=== PATIENT | female | born 1990 | race Caucasian/White ===

== ENCOUNTER 2020-02-04 00:10 | Inpatient (IN) | payer MEDICAID, OTHER, SELFPAY ==
[2020-02-04] MEDS ORDERED: Succinylcholine Chloride 20 MG/ML 10 ml SYRINGE FS ONE (00:19)
[2020-02-04] MEDS ORDERED: Naloxone HCl 2 mg/2 ml Syringe ONE (00:23)
[2020-02-04 00:43] LABS: #Basophils 0.1 thou/uL (0.0-0.2); #Eosinphils 0.1 thou/uL (0.0-0.7); #Lymphocytes 2.9 thou/uL (1.20-3.40); #Monocytes 0.4 thou/uL (0.11-0.59); #Neutrophils 4.8 thou/uL (1.40-6.50); %Basophils 1.2 % (0.0-1.0); %Eosinophils 0.6 % (0.0-10.0); %Lymphocytes 35.3 % (21.0-51.0); %Monocytes 5.3 % (0.0-10.0); %Neutrophils 57.6 % (42.0-75.0); Mean Corpuscular HGB CONC 33.6 g/dL (32.0-36.0); Mean Corpuscular Volume 98.1 fL (78.0-98.0); Platelet Count 323 thou/uL (130-400); RBC Distribution Width 11.4 % (11.5-14.5); Red Blood Cell (RBC) Count 4.86 mill/uL (4.20-5.40); White Blood Cell (WBC) Count 8.3 thou/uL (4.8-10.8)
[2020-02-04] MEDS ORDERED: Fentanyl 100 MCG/2 ML VIAL ONE (00:43)
[2020-02-04] MEDS ORDERED: Midazolam HCl 2 mg/2 ml Vial ONE (00:44)
[2020-02-04] MEDS ORDERED: fentaNYL Citrate/PF 2,000 MCG in Sodium Chloride 0.9% 60 ML IV SCH (00:47)
[2020-02-04 00:54] LABS: BHCG - Serum Negative (NEGATIVE); Pregs Control Background? CLEAR/WHITE (CLR/WHITE); Pregs Control Bar Appear? YES (CONTROL BAR)
[2020-02-04 00:56] LABS: Bilirubin Negative (Negative); Blood, Urine Negative (Negative); Clarity Clear (Clear); Glucose, Urine (Dipstick) Normal (Negative); Leukocyte Negative Leu/uL (Negative); Nitrite Negative (Negative); Protein, Urine (Dipstick) Negative (Neg-Trace); Urobilinogen Normal mg/dL (Less than 2)
[2020-02-04 01:01] LABS: Actual Bicarbonate (HCO3a) 18.7 mEq/L (22-28); Analyzer IN Cardio ER; Base Excess (BEa) -2.8 mEq/L (-2.0 to +3.0); Calcium, Ionized 1.14 mmol/L (1.12-1.30); Carboxyhemoglobin (COHb) 1.3 gm% (0.0-3.0); O2 Tension (PaO2) 297.7 mmHg (80.0-100.0); Potassium - ABG Lab 4.04 mmol/L (3.70-5.30); pH, Arterial 7.48 (7.35-7.45)
[2020-02-04] MEDS ORDERED: Propofol 1,000 MG/100 ML VIAL IV ONE (01:01)
[2020-02-04 01:02] LABS: CO2 Tension 25.6 mmHg (35.0-45.0); Puncture Site R RADIAL
[2020-02-04 01:04] LABS: Acetaminophen Less than 6.0 mcg/mL (10.0-30.0); Alcohol 311 mg/dL (Less than 10); Salicylate Less than 8.0 mg/dL (15.0-30.0)
[2020-02-04 01:05] LABS: ALT (SGPT) 12 U/L (8-55); AST (SGOT) 23 U/L (5-34); Albumin 4.3 g/dL (3.5-5.0); Alkaline Phosphatase 59 U/L (40-110); Anion Gap 15 mmol/L (10-20); BUN (Urea Nitrogen) 9 mg/dL (7.0-18.7); Bilirubin, Total 0.3 mg/dL (0.2-1.2); Calc. Creatinine Clearance 0 mL/min (70-130); Calcium 9.1 mg/dL (7.8-10.44); Carbon Dioxide 20 mmol/L (22-29); Chloride 110 mmol/L (98-107); Estimated GFR-MDRD Greater than 90; Globulin 2.5 g/dL (2.4-3.5); Glucose 101 mg/dL (70-105); Potassium 3.7 mmol/L (3.5-5.1); Protein, Total 6.8 g/dL (6.0-8.3); Sodium 141 mmol/L (136-145)
[2020-02-04 01:05] LABS: Medtox Reader # READER 4
[2020-02-04 01:06] LABS: Amphetamine Not Detected (NotDetected); Barbiturates Screen Not Detected (NotDetected); Benzodiazepine Screen Not Detected (NotDetected); Cocaine Metabolite Screen Not Detected (NotDetected); Medtox Control Line Valid? VALID (VALID); Methadone Not Detected (NotDetected); Methamphetamine Not Detected (NotDetected); Opiate Screen Not Detected (NotDetected); Oxycodone Screen Not Detected (NotDetected); Phencyclidine (PCP) Not Detected (NotDetected); THC/Cannabinoid Screen Detected (NotDetected); Tricyclic Screen Not Detected (NotDetected)
--- NOTE | 2020-02-04 01:25 | PDOC.FPRHP ---
- History of Present Illness Chief Complaint: aggitation, hypoxia History of Present Illness: 29yo F presents via EMS for confusion, aggitation, and altered mentation. At time of presentation patient intubated, history obtained from ERMD and nursing report. Patient was at a hotel with a male counterpart engaging in sexual intercourse when she began to gasp for air and becoming less responsive. He then called 911 and began chest compression, unclear time spent undergoing chest compressions. EMS arrived, patient had pulse and was breathing on own. Was combative and not cooperative. Given 2mg Ativan IM and brought into ED. Per report, unsure of PMHx, friend did not admit to any substance use. ED Course: Initially combative. Within 10 mins of presentation had hypoxia to 70s and not protecting airway. Was given Narcan with no improvement. Sequential RSI was performed and patient placed on fentanyl and propofol gtt. Valverde and NG placed. Given 1L NS. - Allergies/Adverse Reactions Allergies Allergy/AdvReac Type Severity Reaction Status Date / Time No Known Allergies Allergy Verified 02/04/20 01:42 - History PMHx: Unknown - record review, with history of gestational DM PSHx: Unknown FHx:Unknown Social: Unknown - Review of Systems ROS unobtainable: due to endotracheal tube - Vital signs BP: 101/64 HR: 96 RR: 12 Tmax: 97. Pox: 79 on RA -> improved to 100 on vent Wt : 70kg - Physical Exam Constitutional: well developed, other (Intubated and sedated) HEENT: normocephalic and atraumatic, conjunctiva clear, normal nasal mucosa, MMM , other (PERRL, ETT in place) Neck: supple, trachea midline Heart: RRR, normal S1/S2, no murmurs/rubs/gallops, pulses present, no edema Lungs: CTAB, no respiratory distress, good air movement, no rales/rhonchi, no wheezing Abdomen: soft, non-tender, bowel sounds present Musculoskeletal: normal structure, normal tone Neurological: other (Does not withdrawl to pain 2/2 sedation. PERRL.) Skin: no rash/lesions, good turgor, other (track horne on R arm) Heme/Lymphatic: no unusual bruising or bleeding FMR H&P: Results - Labs Result Diagrams: 02/05/20 05:29 02/05/20 05:29 Lab results: WBC 8.3 thou/uL (4.8-10.8) 02/04/20 00:32 Hgb 16.0 g/dL (12.0-16.0) 02/04/20 00:32 Hct 47.7 % (36.0-47.0) H 02/04/20 00:32 MCV 98.1 fL (78.0-98.0) H 02/04/20 00:32 Plt Count 323 thou/uL (130-400) 02/04/20 00:32 Neutrophils % 57.6 % (42.0-75.0) 02/04/20 00:32 ABG pH 7.48 (7.35-7.45) H 02/04/20 00:50 ABG pCO2 25.6 mmHg (35.0-45.0) L* 02/04/20 00:50 ABG pO2 297.7 mmHg (80.0-100.0) H 02/04/20 00:50 Sodium 141 mmol/L (136-145) 02/04/20 00:32 Potassium 3.7 mmol/L (3.5-5.1) 02/04/20 00:32 Chloride 110 mmol/L (98-107) H 02/04/20 00:32 Carbon Dioxide 20 mmol/L (22-29) L 02/04/20 00:32 BUN 9 mg/dL (7.0-18.7) 02/04/20 00:32 Creatinine 0.72 mg/dL (0.6-1.1) 02/04/20 00:32 Glucose 101 mg/dL (70-105) 02/04/20 00:32 Calcium 9.1 mg/dL (7.8-10.44) 02/04/20 00:32 Total Bilirubin 0.3 mg/dL (0.2-1.2) 02/04/20 00:32 AST 23 U/L (5-34) 02/04/20 00:32 ALT 12 U/L (8-55) 02/04/20 00:32 Alkaline Phosphatase 59 U/L (40-110) 02/04/20 00:32 Serum Total Protein 6.8 g/dL (6.0-8.3) 02/04/20 00:32 Albumin 4.3 g/dL (3.5-5.0) 02/04/20 00:32 Urine Ketones Negative mg/dL (Negative) 02/04/20 00:42 Urine Blood Negative (Negative) 02/04/20 00:42 Urine Nitrite Negative (Negative) 02/04/20 00:42 Ur Leukocyte Esterase Negative Marci/uL (Negative) 02/04/20 00:42 - EKG Interpretation EKG: NSR, good R wave progression, no acute ST or T wave changes. Prolonged QT of 460. - Radiology Interpretation Chest x-ray Status: image reviewed by me (ETT/NG tube in place. sharp angles, no focal consolidation), report reviewed by me FMR H&P: A/P - Problem List (1) Alcohol intoxication Status: Acute - Plan 29yo F presents for acute alcohol intoxication requiring intubation for airway protection #Neuro - Alcohol intoxication, THC abuse - EtOH lv 311, UDS + THC otherwise neg, Salicylates and APAP negative - Agitation, altered mentation at presentation, not protecting airway - currently sedated on fentanyl and propofol gtt - Cont sedation protocol and plan to wean in AM - CT Head w/o contrast ordered - Consider other drug intoxication if further history obtained #Resp - Acute hypoxic respiratory failure 2/2 alcohol intoxication - Intubated for airway protection and hypoxemia - Initial Vent settings: CMV - TV 475, RR 12, Peep 5, 50% FiO2 - Post-intubation ABG 7.48/25.6/297/18.7 - Current VSS - EtOH lv 311 - Pulm, Dr. Law, consulted in AM, appreciate recs - cont to vent and wean as tolerated, AM ABG ordered #Cardio - Mild prolonged QTc - QTc 460, avoid QT prolonging medications, monitoring on tele - EKG no acute changes #Renal - BUN/Cr 9/0.77, lytes WNL - strict I's and O's - MIVF of LR @ 110 cc/hr #GI/ - GI PPx Pepcid - NG tube placed - Valverde placed - BHCG neg #Heme - CBC WNL - VTE ppx: Held until CT head results, then start Lovenox #ID - no current s/s of infection, CXR no acute consolidation, UA clean - track horne on exam, suspected h/o IV drug abuse - history of high risk sexual behavior - RPR, HIV, Hep C ordered #Nutrition - NPO 2/2 intubation #Skin - no skin lesions on exam, routine ICU positional changes and skin care #Lines - RUE peripheral IV PCP: CC - unknown Code: Full Disposition/LOS: Admit to CCU for acute hypoxic respiratory failure 2/2 alcohol intoxication and airway protection. Anticipated LOS 2-3 days. FMR H&P: Upper Level - Plan Date/Time: 02/04/20 0124 IManjula, have evaluated this patient and agree with findings/plan as outlined by international affairs vice president resident. Pertinent changes/additions are listed here. 29 yo F is admitted for alcohol intoxication requiring intubation. History obtained from ER physician. Patient was reportedly having intercourse in a hotel with someone when she started gasping. He initially thought he was doing a good job. Then the male friend called EMS and started chest compressions. EMS reported patient had a pulse and was breathing on initial evaluation by them. She was combative and given 4mg Ativan. In the ED patient was agitated on initial presentation and obviously intoxicated. Within 10 min of arrival, sats dropped to 70%s and then was intubated to protect airway. ED given: 1L NS, etomidate, succ, naloxone, versed, fentanyl, propofol ROS unable to obtain, patient intubated PMH: unknown PE: Gen: sedated, intubated, does not withdraw to painful stimuli HEENT: NCAT, pupils reactive Heart: RRR, no murmur Lungs: CTA, vent sounds Abd: soft, ND Skin: track horne to R antecubital area, scratch horne L forearm Ext: no edema, cap refill normal Acute hypoxic respiratory failure 2/2 alcohol intoxication - Alcohol level on admission 311. - UDS + marijuana, otherwise negative. - Vent settings currently TV 475, RR 12, 50% FiO2, Peep 5 - Post intubation ABG 7.48/25.6/297/18 - Sedation protocol - Continue maintenance IVF - CT brain pending - Labs otherwise unremarkable and VSS. No signs of infection, trauma. No other drug or medication use reported. Marijuana abuse - positive on UDS Borderline Prolonged QTc - Qtc 460 - Patient on cardiac monitoring - No known home medication use Possible prior IV drug use - What appear to be track horne seen on PE - HIV, RPR, Hep C ordered Lines: ET tube, NG tube, valverde IVF: LR@ 110 Diet: NPO Ppx: SCDs, could add lovenox after CT completed Code: FULL Attending: Dispo: Admit to ICU. Expect that patient will likely be able to be weaned from vent rather quickly. Addendum - Attending - Attending Attestation Date/Time: 02/09/20 9211 I personally evaluated the patient and discussed the management with Dr. Rice on 02/04/20. I agree with the History, Examination, Assessment and Plan documented above with any addition or exceptions noted below. 29yo F presents via EMS for confusion, agitation, and altered mentation was given CPR after became unresponsive during sex though unclear if actually apneic /pulseless. EMS found confused and combative and give Ativan, then became hypoxic and unsafe for airway. Now inutbated/ventilated/sedated. O/W hemodynamically stable. Admit for continued ventilation with trial for weaning in a.m. if tolerant.
[2020-02-04] MEDS ORDERED: Acetaminophen 325 MG TAB PO PRN (01:53)
[2020-02-04] MEDS ORDERED: Acetaminophen 650 MG/20.3 ML UDCUP PO PRN (01:53)
[2020-02-04] MEDS ORDERED: Acetaminophen 650 MG Suppository PR PRN (01:53)
[2020-02-04] MEDS ORDERED: Ondansetron ODT 4 MG TAB PO PRN (01:53)
[2020-02-04] MEDS ORDERED: Ondansetron PF 4 MG/2 ML Vial IVP PRN (01:53)
[2020-02-04] MEDS ORDERED: Ventilator Sedation Protocol 1 EACH FS SCH (02:00)
[2020-02-04] MEDS ORDERED: Propofol 1,000 MG/100 ML VIAL IV PRN (02:11)
[2020-02-04] MEDS ORDERED: Fentanyl BOLUS 250 ML IVPB PRN (02:11)
[2020-02-04] MEDS ORDERED: DISCONTINUE PREVIOUS NARCOTIC PAIN MEDICATIONS AND BENZODIAZEPINES FS SCH (02:11)
[2020-02-04] MEDS ORDERED: Propofol BOLUS 1,000 MG/100 ML VIAL IV PRN (02:11)
[2020-02-04] MEDS ORDERED: Lorazepam 2 MG/ML VIAL SLOW IVP PRN (02:11)
[2020-02-04] MEDS ORDERED: Morphine 2 MG/ML SYRINGE SLOW IVP PRN (02:11)
[2020-02-04] MEDS ORDERED: Lorazepam 2 MG/ML VIAL ONE (02:12)
[2020-02-04] MEDS: Lactated Ringer's 1,000 ML IV SCH ×3 (02:35→18:06)
[2020-02-04 02:43] LABS: HIV (1/2) Antibody/Antigen Non-Reactive (NonReactive); HIV 1/2 INDEX 0.15 S/CO (<1.00); Hep C IgG Ab Non-Reactive (NonReactive); Hep C Index 0.09 S/CO (0-0.79)
[2020-02-04 03:52] LABS: Syphilis Antibody Nonreactive (Nonreactive); Syphilis Antibody Index 0.03 S/CO (<1.00 Non-Reactive)
[2020-02-04] MEDS ORDERED: Lactated Ringer's 1,000 ML IV SCH (06:30)
[2020-02-04] MEDS ORDERED: Lidocaine 1% w/Epinephrine 1:100K 20 ML VIAL ONE (06:51)
[2020-02-04] MEDS ORDERED: Bupivacaine PF 0.5% 30 ML VIAL ONE (06:51)
[2020-02-04 07:37] LABS: CO2 Tension 31.6 mmHg (35.0-45.0); Calcium, Ionized 1.15 mmol/L (1.12-1.30); Carboxyhemoglobin (COHb) 0.6 gm% (0.0-3.0); O2 Tension (PaO2) 145.3 mmHg (80.0-100.0); Potassium - ABG Lab 3.73 mmol/L (3.70-5.30); pH, Arterial 7.37 (7.35-7.45)
[2020-02-04 07:38] LABS: Puncture Site LRA
--- NOTE | 2020-02-04 07:48 | CT ---
PRELIMINARY REPORT/[facility]/EMERGENCY AFTER HOURS PROCEDURE EXAM: CT Head Without Intravenous Contrast. CLINICAL HISTORY: AMS, hypoxia requiring intubation TECHNIQUE: Axial computed tomography images of the head/brain without intravenous contrast. COMPARISON: None provided. FINDINGS: BRAIN: No acute intraparenchymal hemorrhage. No mass lesion. No CT evidence for acute territorial infarct. N o midline shift or extra-axial collection. VENTRICLES: No hydrocephalus. ORBITS: The orbits are unremarkable. SINUSES AND MASTOIDS: The paranasal sinuses and mastoid air cells are unremarkable. SOFT TISSUES: No significant facial or scalp soft tissue swelling evident. No radiopaque foreign body is seen. BONES: No acute skull fracture. IMPRESSION: No acute intracranial abnormality. ELECTRONICALLY SIGNED BY: Angel Urias MD February 04, 2020 2:16:07 AM CDT This report is intended for review by the ordering physician only, in accordance of law. If you recei ve this report in error, please call [facility] at [phone]. FINAL REPORT Exam: Head CT without contrast HISTORY: Hypoxia, requiring intubation. Altered mental status COMPARISON: none FINDINGS: Hemorrhage: No intraparenchymal hemorrhage or extra-axial hematoma. Brain parenchyma: Cortical cornell-white matter differentiation is preserved. No mass effect or midline shift. Basilar cisterns are patent. Ventricular system: Ventricles and sulci are patent and symmetric. Calvarium: Intact. Sinuses and mastoid air cells: Adequate aeration. IMPRESSION: 1. This report is in agreement with initial report by [facility]. 2. No acute intracranial process. Transcribed Date/Time: 02/04/2020 9:11 AM
[2020-02-04] MEDS ORDERED: DC Sedation Protocol FS ONE (07:53)
--- NOTE | 2020-02-04 08:02 | RAD ---
Exam: Chest one view HISTORY:Respiratory distress. Intubated patient. Comparison: None FINDINGS: Lines and tubes: Endotracheal tube at the level of the thoracic inlet. Nasogastric tube terminates in the left upper quadrant. Cardiac silhouette: Normal Aorta: Unremarkable Pulmonary vessels: Normal Costophrenic angles: Clear LUNGS: Patchy interstitial opacities in the lung bases. Pneumothorax: None Osseous abnormalities: None IMPRESSION: 1. Endotracheal tube and nasogastric tube as described above. 2. Patchy interstitial opacities in the lung bases. Continued surveillance is recommended
[2020-02-04] MEDS: Multivitamins, Adult 10 ML, Folic Acid 1 MG, Thiamine HCl 100 MG in Dextrose 5 %-0.45 %... IV SCH (08:12)
--- NOTE | 2020-02-04 08:32 | CON ---
DATE OF CONSULTATION: 02/04/2020 This encompasses 45 minutes of critical care time. CONSULTING PHYSICIAN: [facility]. REASON FOR CONSULTATION: ICU management. HISTORY OF PRESENT ILLNESS: This is a 29-year-old female who became unresponsive last night. The reasons are well chronicled in her history and physical. She received brief amount of CPR, was intubated in the field and brought to the emergency room. She was found to have alcohol poisoning. She is now awake and alert this morning, following commands. PAST MEDICAL HISTORY: Unknown. PAST SURGICAL HISTORY: Unknown. FAMILY HISTORY: Unknown. SOCIAL HISTORY: Not known. REVIEW OF SYSTEMS: Unobtainable at this time. ALLERGIES: NONE KNOWN. OUTPATIENT MEDICATIONS: Not known. PHYSICAL EXAMINATION: VITAL SIGNS: Pulse 97, blood pressure 117/65, O2 saturation 99%, and respiratory rate 14. HEENT: Unremarkable except for tattoos on the face. NECK: No adenopathy or JVD. LUNGS: Clear to auscultation. CARDIAC: S1 and S2, regular without murmur. ABDOMEN: Soft, nontender, and nondistended. EXTREMITIES: No clubbing, cyanosis, or edema. LABORATORY DATA: White blood cell count 8.3, hematocrit 47.7, and platelet count 323. A pH of 7.37, pCO2 of 31, pO2 of 145 on SIMV rate 12, tidal volume 450, PEEP 5, pressure support 10, FiO2 of 30%. Sodium 141, potassium 3.7, chloride 110, CO2 of 20, BUN 9, creatinine 0.7, glucose 101. Serum test was negative. Albumin 4.3. Urinalysis negative. Tox screen, alcohol level 311, cannabinoids detected. HIV nonreactive. Hepatitis C nonreactive. Syphilis test nonreactive. X-ray shows no mass, effusion, or infiltrate. ET tube somewhat high. ASSESSMENT: Acute alcohol intoxication with respiratory failure and possible cardiac arrest. PLAN: 1. She seems to be back to her baseline. We will go ahead and extubate her and observe her. 2. Give her one banana bag. 3. Discontinue Diaz. 4. Up in a chair as tolerated. Job ID: [id number]
[2020-02-04] MEDS ORDERED: Famotidine/PF 20 mg/2ml Vial SLOW IVP SCH (09:00)
[2020-02-04 11:02] VITALS: BMI 24.5
[2020-02-04] MEDS ORDERED: hydrOXYzine 25 MG TAB PO PRN (15:55)
[2020-02-05] MEDS: Lactated Ringer's 1,000 ML IV SCH (03:24)
[2020-02-05 05:57] LABS: #Basophils 0.1 thou/uL (0.0-0.2); #Eosinphils 0.1 thou/uL (0.0-0.7); #Lymphocytes 2.9 thou/uL (1.20-3.40); #Monocytes 0.7 thou/uL (0.11-0.59); #Neutrophils 5.1 thou/uL (1.40-6.50); %Basophils 0.7 % (0.0-1.0); %Lymphocytes 33.1 % (21.0-51.0); %Monocytes 8.3 % (0.0-10.0); %Neutrophils 56.9 % (42.0-75.0); Hemoglobin 14.3 g/dL (12.0-16.0); Mean Corpuscular HGB CONC 32.5 g/dL (32.0-36.0); Mean Corpuscular Hemoglobin 32.2 pg (27.0-31.0); Mean Corpuscular Volume 98.8 fL (78.0-98.0); Mean Platelet Volume 7.3 fL (7.4-10.4); Platelet Count 303 thou/uL (130-400); RBC Distribution Width 11.5 % (11.5-14.5); Red Blood Cell (RBC) Count 4.46 mill/uL (4.20-5.40); White Blood Cell (WBC) Count 8.9 thou/uL (4.8-10.8)
[2020-02-05 06:22] LABS: ALT (SGPT) 13 U/L (8-55); AST (SGOT) 21 U/L (5-34); Albumin 3.8 g/dL (3.5-5.0); Alkaline Phosphatase 51 U/L (40-110); Anion Gap 10 mmol/L (10-20); BUN (Urea Nitrogen) 6 mg/dL (7.0-18.7); Calc. Creatinine Clearance 121 mL/min (70-130); Calcium 8.9 mg/dL (7.8-10.44); Carbon Dioxide 28 mmol/L (22-29); Chloride 105 mmol/L (98-107); Estimated GFR-MDRD Greater than 90; Globulin 2.1 g/dL (2.4-3.5); Glucose 95 mg/dL (70-105); Potassium 4.1 mmol/L (3.5-5.1); Protein, Total 5.9 g/dL (6.0-8.3); Sodium 139 mmol/L (136-145)
--- NOTE | 2020-02-05 07:02 | PDOC.FM ---
- Subjective Subjective: NAEO. Patient able to tolerate PO last night, ambulating. Patient states she is feeling much better and ready to go home. She denies any SOB, NVD, chest pain, palpitations. - Objective MAR Reviewed: Yes Vital Signs & Weight: Vital Signs (12 hours) Temp Pulse Resp BP Pulse Ox 02/05/20 00:00 98.1 F 51 L 20 100/67 99 02/04/20 20:00 100 02/04/20 19:36 98.7 F 63 20 123/75 100 Weight Admit Weight 65 kg Weight 67.585 kg Most Recent Monitor Data Heart Rate from ECG 59 NIBP 111/73 NIBP BP-Mean 85 Respiration from ECG 18 SpO2 98 I&O: 02/03/20 02/04/20 02/05/20 06:59 06:59 06:59 Intake Total 1337 1020 Output Total 615 305 Balance 722 715 Result Diagrams: 02/05/20 05:29 02/05/20 05:29 Phys Exam - Physical Examination Constitutional: NAD HEENT: moist MMs, sclera anicteric Neck: supple, full ROM Respiratory: clear to auscultation bilateral Cardiovascular: RRR Gastrointestinal: soft, non-tender, no distention, positive bowel sounds Musculoskeletal: no edema Neurological: non-focal, moves all 4 limbs Psychiatric: normal affect, A&O x 3 Skin: no rash, normal turgor, cap refill <2 seconds Dx/Plan (1) Respiratory failure Code(s): J96.90 - RESPIRATORY FAILURE, UNSP, UNSP W HYPOXIA OR HYPERCAPNIA Status: Acute (2) Alcohol intoxication Status: Acute - Plan Plan: 29yo F presents for acute alcohol intoxication requiring intubation for airway protection. Acute Hypoxic Respiratory failure 2/2 Alcohol Intoxication Per EMS and witness report, patient intoxicated and given benzo and desatted to the 70s in the ER. She required intubation for airway protection and hypoxemia. CT head negative. EKG showed mildly prolonged QTc - 460. CXR no consolidation. - UDS: THC, Alcohol 311 - Pulm consulted, appreciate recs. Extubated /6 and doing well since. Transferred to medical. - s/p banana bag, PO hydration as tolerating PO - Encourage ambulation Hx of Drug and alcohol use - Hepatitis, HIV, RPR negative - UDS THC, alcohol 311 PCP: CC Diet: Reg DVT/GI: none Code: Full Disposition/LOS: likely dc later today as long as tolerating PO Case discussed with Dr. Gonzalez Addendum - Attending - Attending Attestation Date/Time: 02/05/20 2659 I personally evaluated the patient and discussed the management with Dr. Farmer I agree with the History, Examination, Assessment and Plan documented above with any addition or exceptions noted below - Patient feeling much better. Tolerating diet. Afebrile VSS. A/P: 1) Alcohol intoxication- resolved. 2) Dehydration-resolved. D/c home
[2020-02-05] MEDS: Multivitamins, Adult 10 ML, Folic Acid 1 MG, Thiamine HCl 100 MG in Dextrose 5 %-0.45 %... IV SCH (09:35)
[2020-02-05 11:54] VITALS: BP 122/80; TEMP 98.7
--- NOTE | 2020-02-06 08:59 | PQF ---
[employer] Consultant [employer] Winform Viewer MINNIE CASTELLANOS ANNA MD [id number] CLINICAL DOCUMENTATION CLARIFICATION FORM: POST DISCHARGE Addendum to original discharge summary date: ____ Late entry note date: __ DATE: 02/06/20 ATTN: Lida Gonzalez Please exercise your independent, professional judgment in responding to the clarification form. Clinical indicators are provided on the bottom of this form for your review Can you please further clarify the etiology of acute respiratory failure? Please check appropriate box(s): [ ] Acute respiratory failure due to Alcohol intoxication and marijuana abuse [ ] Acute respiratory failure due to Alcohol poisoning and marijuana abuse [x ] Acute respiratory failure due to Alcohol Poisoning only [ ] Acute respiratory failure due to Alcohol intoxication only [ ] Other diagnosis please specify [ ] Unable to determine In addition, please specify: Present on Admission (POA): [ x ] Yes [ ] No [ ] Unable to determine For continuity of documentation, please document condition throughout progress notes and discharge summary. Thank You. CLINICAL INDICATORS - SIGNS / SYMPTOMS / LABS H and P pg.1- agitation and hypoxia H and P pg.1- at time of presentation patient was intubated H and P pg.1- within 10 mins of presentation had hypoxia to 70s and not protecting airway H ad P pg.3- acute alcohol intoxication requiring intubation for airway protection H and P pg.4- Acute hypoxic respiratory failure 2/2 alcohol intoxication H and P pg.5- Alcohol level on admission 311 Consult pg.1- she was found to have alcohol poisoning" Labs Blood gas 02/03: ph=7.48 pc02=25.6 u77=529.7 RISK FACTORS THC abuse H ad P pg.3 Alcohol intoxication- H and P pg.3 Dehydration- PN pg.2 TREATMENTS: Intubated and sedated- H and P pg.[address] Law 02/03 Oxygen supplementation Chest X ray 02/03 Banana bag- Consult pg.2 IV fluids- MAR (This form is maintained as a part of the permanent medical record) 2014 [employer], [employer]. All Rights Reserved [email or web address]
--- NOTE | 2020-02-06 12:25 | DIS ---
DATE OF ADMISSION: 02/04/2020 DATE OF DISCHARGE: 02/05/2020 RESIDENT: Pamella Farmer MD ADMITTING ATTENDING: Khoi Gold MD DISCHARGE ATTENDING: Lida Gonzalez MD CONSULT: Pulmonology. PROCEDURES: 1. Intubation on 02/04/2020. 2. Extubation on 02/04/2020. DISCHARGE MEDICATIONS: No changes made to medications. PRIMARY DIAGNOSIS: Acute hypoxic respiratory failure secondary to alcohol intoxication. SECONDARY DIAGNOSIS: History of drug and alcohol use. HISTORY OF PRESENT ILLNESS/HOSPITAL COURSE: This is a 29-year-old female who presented to the ER for confusion, agitation, and altered mentation. History was obtained from EMS and nursing report. The patient was at a hotel engaging in sexual intercourse with a male partner when she began to gasp for air, became less responsive. He then called 911 and began chest compressions, it was unclear of the time spent undergoing chest compressions. EMS arrived. The patient had a pulse and was breathing on her own when EMS arrived to the hotel. The patient was combative and not cooperative. She was given 2 mg of Ativan IM and brought to the ER. In addition, the patient was given Narcan en route to the ER with no improvement in symptoms. In the ER, the patient began to desat into the 70s and was intubated for protection of her airway and hypoxia. The patient's alcohol level came back at 311, and her UDS was positive for marijuana. The patient's EKG showed normal sinus rhythm with a prolonged QT of 460. The chest x-ray was normal. The patient was admitted to the ICU and Pulmonology was consulted. The patient was extubated early the next morning and was doing well. The patient did well after being extubated and was moved to the floor. The patient had several episodes of vomiting and she was kept overnight to make sure she could tolerate p.o. The patient was able to tolerate dinner and breakfast the next day and was discharged in stable condition without issue. DISPOSITION: Stable. DISCHARGE INSTRUCTIONS: 1. Location: Home. 2. Activity: Ad sherman. 3. Diet: Regular. 4. Follow up with PCP within 7 days. Job ID: [id number]
== END 2020-02-05 12:05 | disposition home or self-care (01) | DRG 208 ==
LOC: ERS 00:10 → CCU 01:19 → T4-A 14:18
PROVIDERS: ADMIT Family Medicine; ATTEND Family Medicine
PROC: 0BH17EZ Insertion of Endotracheal Airway into Trachea, Via Natural or Artificial Opening (ICD-10-PCS; principal; 2020-02-04)
PROC: 5A1935Z Respiratory Ventilation, Less than 24 Consecutive Hours (ICD-10-PCS; 2020-02-04)
PROC: HZ2ZZZZ Detoxification Services for Substance Abuse Treatment (ICD-10-PCS; 2020-02-04)
DX: J96.01 Acute respiratory failure with hypoxia (principal); R40.2312 Coma scale, best motor response, none, at arrival to emergency department; R40.2112 Coma scale, eyes open, never, at arrival to emergency department; R40.2212 Coma scale, best verbal response, none, at arrival to emergency department; F10.129 Alcohol abuse with intoxication, unspecified; Y90.8 Blood alcohol level of 240 mg/100 ml or more; F12.10 Cannabis abuse, uncomplicated; R94.31 Abnormal electrocardiogram [ECG] [EKG]; E86.0 Dehydration; Z78.1 Physical restraint status
CPT/HCPCS: 31500; 36415; 36416; 51702; 70450; 71045; 80053; 80306; 80307; 81003; 82805; 84703; 85025; 86780; 86803; 87086; 87389; 93005; 94002; 94003; 96361; 96365; 96375; J2060; J2250; J2310; J2405; J2704; J3010; J3411; J3490; J7042; S0020